=== PATIENT | female | born 2005 | race African-American/Black ===

== ENCOUNTER 2024-04-07 12:05 | Emergency (ER) | payer OTHER ==
[~2024-04-07] VITALS: Ht 175.3 cm; Wt 152.7 kg
[2024-04-07] MEDS ORDERED: AMOX875T2 PO (14:47)
[2024-04-07] MEDS ORDERED: DIPH-435 PO (14:47)
[2024-04-07] MEDS: diphenhydrAMINE 50MG/ML VIAL IM ONE (14:55)
[2024-04-07] MEDS: predniSONE 20 MG TAB PO ONE (14:55)
[2024-04-07] MEDS: AUGMENTIN 875 MG TAB PO ONE (14:55)
[2024-04-07] MEDS ORDERED: PRED20TA PO (14:57)
[2024-04-07 15:07] VITALS: BP 145/99; TEMP 98.4; O2SAT 98
== END 2024-04-07 15:22 | disposition home or self-care (01) ==
LOC: M ED 12:05
DX: S00.261A Insect bite (nonvenomous) of right eyelid and periocular area, initial encounter (principal); Z88.2 Allergy status to sulfonamides; Z79.2 Long term (current) use of antibiotics; Z79.52 Long term (current) use of systemic steroids; Z79.899 Other long term (current) drug therapy; Y92.9 Unspecified place or not applicable; Y93.89 Activity, other specified; Y99.9 Unspecified external cause status
CPT/HCPCS: 96372; 99283; J1200; J7512

== ENCOUNTER 2024-09-28 14:07 | Emergency (ER) | payer MEDICAID ==
[~2024-09-28] VITALS: Ht 175.3 cm; Wt 151.7 kg
[~2024-09-28 14:07] MED LIST: AMOX875T2 PO; DIPH-435 PO; PRED20TA PO
[2024-09-28] MEDS ORDERED: VENTAER INH (18:10)
[2024-09-28 18:19] VITALS: BP 132/82; TEMP 98.1; O2SAT 99
== END 2024-09-28 18:20 | disposition home or self-care (01) ==
LOC: M ED 14:07
DX: J04.0 Acute laryngitis (principal); Z88.2 Allergy status to sulfonamides

== ENCOUNTER → 2025-03-15 | Outpatient (REF) | payer OTHER, MEDICAID ==
[~2025-03-15] MED LIST changes: +VENTAER INH
[2025-03-15 13:03] LABS: BASO # 0.1 10^3/uL (0.0-0.2); BASO % 0.8 % (0.0-1.0); EOS # 0.1 10^3/uL (0.0-0.5); HEMATOCRIT 42.4 % (36.0-47.0); HEMOGLOBIN 13.6 g/dl (12.0-15.5); LYMPH # 1.8 10^3/uL (1.5-5.0); LYMPH % 23.2 % (24.0-44.0); MEAN CORPUSCULAR HEMOGLOBIN 27.4 pg (27.0-33.0); MEAN CORPUSCULAR HGB CONC 32.1 g/dl (32.0-36.5); MEAN CORPUSCULAR VOLUME 85.5 fl (80.0-96.0); MONO # 0.8 10^3/uL (0.0-0.8); NEUTROPHILS # 5.1 10^3/uL (1.5-8.5); NEUTROPHILS % 64.9 % (36.0-66.0); PLATELET COUNT, AUTOMATED 312 10^3/uL (150-450); RED BLOOD COUNT 4.96 10^6/uL (4.00-5.40); WHITE BLOOD COUNT 7.9 10^3/uL (4.0-10.0)
[2025-03-15 13:08] LABS: BLOOD UREA NITROGEN 10 MG/DL (9-23); C REACTIVE PROTEIN QUANTITATIV < 0.50 MG/DL (<1.0); CALCIUM LEVEL 9.4 MG/DL (8.5-10.1); CARBON DIOXIDE LEVEL 27 MMOL/L (20-31); CHLORIDE LEVEL 108 MMOL/L (98-107); CHOLESTEROL LEVEL 149 MG/DL (<200); CHOLESTEROL RISK RATIO 3.15 (<5); GLOMERULAR FILTRATION RATE > 90.0 (>60); GLUCOSE, FASTING 84 MG/DL (60-100); HDL CHOLESTEROL 47.3 MG/DL (>40); LDL CHOLESTEROL 92.1 MG/DL (<100); NON-HDL-C 101.7 MG/DL; POTASSIUM SERUM 4.2 MMOL/L (3.5-5.1); SODIUM LEVEL 143 MMOL/L (136-145); TRIGLYCERIDES LEVEL 48 MG/DL (<150)
[2025-03-15 13:11] LABS: THYROID STIMULATING HORMONE 1.572 uIU/ML (0.55-4.78)
[2025-03-15 13:14] LABS: ERYTHROCYTE SEDIMENTATION RATE 34 mm/hr (0-20)
[2025-03-15 13:23] LABS: HEMOGLOBIN A1c 5.1 % (4.0-6.0)
== END ==
LOC: M LAB REF 12:12
PROVIDERS: ATTEND Nurse Practitioner Family
DX: J03.91 Acute recurrent tonsillitis, unspecified (principal); Z11.9 Encounter for screening for infectious and parasitic diseases, unspecified; E66.813 Obesity, class 3

== ENCOUNTER → 2025-06-24 | Outpatient (CLI) | payer OTHER | LOC: M PLAIMG 07:50 | PROVIDERS: ATTEND Otolaryngology | DX: J32.0 Chronic maxillary sinusitis (principal) ==

== ENCOUNTER → 2025-08-03 | Outpatient (REF) | payer OTHER ==
[2025-08-03 19:33] LABS: HIV 1&2 SCREEN NEGATIVE (NEGATIVE)
[2025-08-03 19:40] LABS: HEPATITIS C VIRUS ABY INDEX < 0.02 INDEX (<0.8)
[2025-08-03 20:49] LABS: Trichomonas vaginalis (AMP) NOT DETECTED (NEGATIVE)
[2025-08-03 21:12] LABS: GC DNA AMPLIFICATION NEGATIVE (NEGATIVE)
[2025-08-05 13:02] LABS: HEPATITIS B CORE ANTIBODY IGG NON-REACTIVE (NON-REACTIVE); HEPATITIS B SURF AB QUANT < 5 mIU/mL (> OR = 10)
== END ==
LOC: M LAB REF 17:15
PROVIDERS: ATTEND Student in an Organized Health Care Education/Training Program
DX: R35.0 Frequency of micturition (principal); A64 Unspecified sexually transmitted disease

== ENCOUNTER → 2025-09-12 | Outpatient (REF) | payer OTHER, MEDICAID ==
[~2025-09-12] MED LIST changes: +ALBU8.5H; +AZEL1SPR3; +BENZ200C70 PO; +CETI-24 PO; +FLUTISP; +IBUP600T42; +SYMB16INH; +VITA200016
[2025-09-12 15:10] LABS: C REACTIVE PROTEIN QUANTITATIV 1.42 MG/DL (<1.0); RHEUMATOID FACTOR QUANT 74.7 IU/ML (<14)
[2025-09-16 16:57] LABS: HLA-B27 Negative (Negative)
== END ==
LOC: M LAB REF 12:01
PROVIDERS: ATTEND Nurse Practitioner Family
DX: R69 Illness, unspecified (principal)

== ENCOUNTER 2025-09-16 07:27 | Emergency (ER) | payer MEDICAID, OTHER ==
[~2025-09-16] VITALS: Ht 175.3 cm; Wt 142.7 kg
[~2025-09-16 07:27] MED LIST changes: -BENZ200C70 PO; -IBUP600T42; -VITA200016
[2025-09-16] MEDS ORDERED: VITA200016 (07:48)
[2025-09-16] MEDS ORDERED: IBUP600T42 (07:48)
[2025-09-16] MEDS: BENZONATATE 100 MG CAPSULE PO ONE (10:42)
[2025-09-16] MEDS: NS (Normal Saline) 0.9% 1,000 ML IV ONE (10:42)
[2025-09-16 10:59] LABS: BASO # 0.1 10^3/uL (0.0-0.2); BASO % 1.4 % (0.0-1.0); EOS # 0.1 10^3/uL (0.0-0.5); EOS % 1.8 % (0.0-3.0); LYMPH # 0.9 10^3/uL (1.5-5.0); LYMPH % 18.9 % (24.0-44.0); MONO # 1.1 10^3/uL (0.0-0.8); MONO % 22.5 % (2.0-8.0); NEUTROPHILS # 2.7 10^3/uL (1.5-8.5); NEUTROPHILS % 55.4 % (36.0-66.0); PLATELET COUNT, AUTOMATED 298 10^3/uL (150-450)
[2025-09-16 11:28] LABS: ALT/SGPT 19 U/L (7.0-40); AST/SGOT 19 U/L (<34); CALCIUM LEVEL 8.9 MG/DL (8.5-10.1); CARBON DIOXIDE LEVEL 26 MMOL/L (20-31); CHLORIDE LEVEL 106 MMOL/L (98-107); CREATININE FOR GFR 0.80 MG/DL (0.55-1.30); GLOMERULAR FILTRATION RATE > 90.0 (>60); POTASSIUM SERUM 4.3 MMOL/L (3.5-5.1); SODIUM LEVEL 140 MMOL/L (136-145)
[2025-09-16 11:29] LABS: HCG, SERUM QUALITATIVE NEGATIVE (NEGATIVE)
[2025-09-16] MEDS: ALBUTEROL 90 MCG/ACT 8 GM HFA INHALER INH ONE (11:41)
[2025-09-16] MEDS: KETOROLAC 30 MG/ML 1 ML VIAL IV ONE (11:56)
[2025-09-16 12:46] VITALS: BP 114/63; O2SAT 99
[2025-09-16 13:04] VITALS: TEMP 99.7
[2025-09-16] MEDS ORDERED: VENTAER INH (16:49)
[2025-09-16] MEDS ORDERED: BENZ200C70 PO (16:49)
== END 2025-09-16 13:17 | disposition home or self-care (01) ==
LOC: M ED 07:27
DX: J09.X2 Influenza due to identified novel influenza A virus with other respiratory manifestations (principal); J45.909 Unspecified asthma, uncomplicated; Z20.828 Contact with and (suspected) exposure to other viral communicable diseases; Z20.822 Contact with and (suspected) exposure to COVID-19; F41.9 Anxiety disorder, unspecified; F12.10 Cannabis abuse, uncomplicated; E66.9 Obesity, unspecified; Z79.899 Other long term (current) drug therapy; Z88.2 Allergy status to sulfonamides; Z91.040 Latex allergy status
CPT/HCPCS: 80053; 84703; 85025; 87486; 87581; 87633; 87798; 94640; 94664; 96361; 96374; 99284; J1885